=== PATIENT | male | born 1955 | race Caucasian/White ===

== ENCOUNTER 2017-09-25 10:07 | Day surgery (SDC) | payer OTHER ==
[2017-09-24 14:30] VITALS: BMI 28.9
[2017-09-25] MEDS ORDERED: Propofol 10 mg/ml Inj (20 ML) ONE ×2 (11:55→11:58)
[2017-09-25] MEDS ORDERED: Midazolam 2 MG/2 ML VIAL ONE (11:55)
[2017-09-25] MEDS ORDERED: ceFAZolin 1 gm in NS 2 GM/200 ML BAG IVPB ONE (12:02)
[2017-09-25] MEDS ORDERED: Lidocaine/Epinephrine 1% 1:100000 10 ML IJ ONE (12:13)
[2017-09-25] MEDS ORDERED: HYDROmorphone 0.5 mg/0.5 ml ISec IVP PRN (12:57)
--- NOTE | 2017-09-25 13:01 | PCM.SURG1 ---
Surgeon's Initial Post Op Note - Surgeon's Notes Surgeon: Philip Primer Inserting Machine Operator: GLENROY [id number] Pre-Operative Diagnosis: Perineal lesions Operative Findings: perineal lesions Post-Operative Diagnosis: same Operation Performed: Excision of perineal lesions Specimen/Specimens Removed: lesions in perineum Estimated Blood Loss: EBL {In ML}: 10 Date of Surgery/Procedure: 09/25/17 Time of Surgery/Procedure: 12:00
[2017-09-25 14:21] VITALS: O2SAT 100
[2017-09-25 14:42] VITALS: BP 110/69; PULSE 80; RESP 18; TEMP 97.1
--- NOTE | 2017-09-26 00:26 | OP ---
PROCEDURE DATE: 09/25/2017 PREOPERATIVE DIAGNOSIS: In situ squamous cell carcinoma of perineum, left side. PROCEDURE CARRIED OUT: Wide local excision with primary closure. SURGEON: Jc Palacios Jr., MD SUPERVISOR CUSTOMER SERVICES: ANESTHESIOLOGIST: Mr. Kruger. ANESTHESIA: General anesthesia. INDICATIONS: The patient is a middle-aged male presenting with a biopsy done elsewhere which shows an in situ squamous cell carcinoma with bowenoid features. Prior to the operation, the risk of the operation, healing, etc were all discussed. A wide local excision was carried out at twice the margin. The wound was then approximated with Monocryl sutures and 5-0 nylon sutures on the skin. Blood loss was 10 mL. Operation carried out is wide local excision of in situ squamous cell carcinoma of perineum. Jc Palacios Jr., MD
== END 2017-09-25 14:45 | disposition home or self-care (01) ==
LOC: C.SDS 10:07
PROVIDERS: ATTEND Surgery Vascular Surgery
DX: C76.3 Malignant neoplasm of pelvis (principal)
CPT/HCPCS: 11626; 88305; 88313; 88342; J0690; J1885; J2250; J2405; J2704; J3010